=== PATIENT | male | born 1960 | race Caucasian/White ===

== ENCOUNTER 2023-12-15 09:30 | Emergency (ER) | payer BC | END 2023-12-15 10:15 | disposition home or self-care (01) | LOC: VM.ED 09:30 → MERGE 09:30 → VM.ED 10:15 | DX: Q17.9 Congenital malformation of ear, unspecified (principal); Z91.048 Other nonmedicinal substance allergy status | CPT/HCPCS: 99282 ==

== ENCOUNTER 2024-06-05 22:05 | Emergency (ER) | payer BC, MEDICARE ==
[2024-06-05] MEDS ORDERED: Sodium Chloride 0.9% 10 ML Syringe FLUSH PRN (22:24)
[2024-06-05] MEDS: Nitroglycerin 0.4 MG Tab.SL SL PRN (22:28)
[2024-06-05 22:32] LABS: BASOPHILS PERCENT AUTO 0.6 % (0.2-1.2); EOSINOPHILS ABSOLUTE AUTO 0.3 x10^3/uL (0.0-0.5); HEMATOCRIT 38.6 % (40.0-52.0); HEMOGLOBIN 13.3 g/dL (14.0-18.0); IMMATURE GRAN ABSOLUTE AUTO 0.03 x10^3/uL (0.00-0.07); LYMPHOCYTES ABSOLUTE AUTO 2.1 x10^3/uL (1.0-4.8); LYMPHOCYTES PERCENT AUTO 29.2 % (25.0-50.0); MEAN CORPUSCULAR HEMOGLOBIN 31.3 pg (26.0-32.0); MEAN CORPUSCULAR HGB CONC 34.5 g/dL (32.0-36.0); MEAN CORPUSCULAR VOLUME 90.8 fL (78.0-93.0); MONOCYTES ABSOLUTE AUTO 0.8 x10^3/uL (0.0-0.8); MONOCYTES PERCENT AUTO 10.4 % (2.0-11.0); NEUTROPHILS PERCENT AUTO 55.4 % (50.0-80.0); PLATELET COUNT,PLT 260 x10^3/uL (130-400); RED BLOOD CELL COUNT 4.25 x10^6/uL (4.5-6.0); WHITE BLOOD CELL COUNT,WBC 7.2 x10^3/uL (4.0-10.0)
[2024-06-05] MEDS: Aspirin 81 MG Tab.Chew PO ONE (22:42)
[2024-06-05 22:44] LABS: PROTHROMBIN TIME 9.9 SEC (8.9-11.5)
[2024-06-05 23:00] LABS: A/G RATIO 1.25; BILIRUBIN TOTAL 0.5 mg/dL (0.2-1.0); CREATININE 1.3 mg/dL (0.70-1.30); EST CRCL DRUG DOSING (CG) 60.34 mL/min; POTASSIUM,K 4.5 mmol/L (3.5-5.1); PROTEIN TOTAL,TP 7.2 g/dL (6.4-8.2)
[2024-06-05 23:01] LABS: ANION GAP 10.5 mmol/L (5-15)
[2024-06-06] MEDS: Acetaminophen 500 MG Tab PO ONE (00:40)
== END 2024-06-06 09:03 | disposition designated cancer center or children's hospital (05) ==
LOC: VM.ED 22:05
DX: I21.4 Non-ST elevation (NSTEMI) myocardial infarction (principal); I10 Essential (primary) hypertension; Z86.16 Personal history of COVID-19; Z79.899 Other long term (current) drug therapy; Z79.82 Long term (current) use of aspirin; Z91.048 Other nonmedicinal substance allergy status
CPT/HCPCS: 36415; 71045; 80053; 83735; 83880; 84484; 85025; 85610; 93005; 93010; 99284; 99285; A9270